=== PATIENT | female | born 1995 | race Caucasian/White ===

== ENCOUNTER → 2016-10-29 | Outpatient (CLI) | payer OTHER ==
[2016-02-18 17:35] VITALS: BP 129/87
[2016-10-29 15:09] LABS: ALANINE AMINOTRANSFERASE 32 Units/L (12-78); ALKALINE PHOSPHATASE 163 Units/L (46-116); ASPARTATE AMINO TRANSFERASE 17 Units/L (15-37); BLOOD UREA NITROGEN 6 mg/dL (7-18); CALCIUM 8.9 mg/dL (8.5-10.1); CARBON DIOXIDE 22.9 mmol/L (21-32); CHLORIDE 107 mmol/L (98-107); CREATININE 0.69 mg/dL (0.55-1.02); GLUCOSE 104 mg/dL (65-99); SODIUM 141 mmol/L (136-145); T4 (THYROXINE) 8.9 ug/dL (4.7-13.3); TOTAL PROTEIN 8.5 g/dL (6.4-8.2); TSH (3RD GENERATION) 3.378 uIU/mL (0.358-3.74); eGFR BLACK RACES > 60 (>60); eGFR NON BLACK RACES > 60 (>60)
== END ==
LOC: LAB 14:00
PROVIDERS: ATTEND Internal Medicine Cardiovascular Disease
DX: Z13.220 Encounter for screening for lipoid disorders (principal); R55 Syncope and collapse; R06.09 Other forms of dyspnea
CPT/HCPCS: 36415; 80053; 84436; 84443; 84480

== ENCOUNTER 2016-11-11 11:39 | Inpatient (IN) | payer OTHER ==
[2016-11-11] MEDS ORDERED: HEPARIN SODIUM IN D5W 25,000 UNITS/500 ML BAG IV ONE (12:12)
[2016-11-11] MEDS ORDERED: HEPARIN SODIUM INJ 5000 UNITS ONE (12:12)
[2016-11-11 13:00] VITALS: BMI 37.4
[2016-11-11] MEDS ORDERED: AFLURIA IM ONE (13:00)
[2016-11-11] MEDS ORDERED: ATARAX TAB 25 MG PO PRN (13:25)
[2016-11-11] MEDS ORDERED: LOVENOX INJ 40 MG SYR SC ONE (14:03)
[2016-11-11] MEDS: LANOXIN PO SCH (14:11)
[2016-11-11] MEDS: LOVENOX INJ 40 MG SYR SC SCH (14:12)
[2016-11-11] MEDS: COREG TAB 12.5 MG PO SCH ×2 (14:13→21:05)
[2016-11-11] MEDS: LASIX PO SCH ×2 (14:13→21:05)
[2016-11-11] MEDS: ALDACTONE TAB 25 MG PO SCH ×2 (14:13→21:05)
[2016-11-11] MEDS: NEURONTIN CAP 100 MG PO SCH ×2 (14:13→21:05)
[2016-11-11] MEDS ORDERED: NORCO 7.5/325 MG TAB PO PRN (14:14)
[2016-11-11] MEDS: WELLBUTRIN XL 150 MG (DAILY) PO SCH (14:19)
[2016-11-11] MEDS: PROTONIX INJ 40 MG VIAL IVP SCH (14:23)
[2016-11-11 14:38] LABS: BASOPHILS # (AUTO) 0.1 X10^3/uL (0.0-0.1); BASOPHILS % (AUTO) 0.5 % (0.2-1.0); EOSINOPHILS # (AUTO) 0.2 x10^3/uL (0.0-0.2); EOSINOPHILS % (AUTO) 1.7 % (0.9-2.9); HEMATOCRIT 43.7 % (36.0-47.0); HEMOGLOBIN 14.5 g/dL (12.0-16.0); LYMPHOCYTES % (AUTO) 28.7 % (21.0-51.0); MEAN CORPUSCULAR HEMOGLOBIN 27.2 pg (27.0-34.0); MEAN CORPUSCULAR HGB CONC 33.1 g/dL (33.0-35.0); MONOCYTES # (AUTO) 0.6 x10^3/uL (0.3-0.8); NEUTROPHILS # (AUTO) 6.7 x10^3/uL (2.2-4.8); NEUTROPHILS % (AUTO) 63.1 % (42.0-75.0); PLATELET COUNT 228 X10^3/uL (150.0-450.0); RED BLOOD COUNT 5.33 X10^6/uL (3.5-5.4); RED CELL DISTRIBUTION WIDTH 14.7 % (11.6-16.5); WHITE BLOOD COUNT 10.6 X10^3/uL (3.6-10.0)
--- NOTE | 2016-11-11 14:39 | RAD ---
HISTORY: Chest pain Study: Portable chest Comparison: July 2011 Findings: The trachea is midline. The cardiac silhouette is unremarkable. The lungs are clear without focal infiltrate or effusion. The bony thorax is unremarkable. IMPRESSION: 1. No acute cardiopulmonary disease. Reported By:
[2016-11-11 14:45] LABS: ALANINE AMINOTRANSFERASE 33 Units/L (12-78); ALBUMIN 3.8 g/dL (3.4-5.0); ALKALINE PHOSPHATASE 146 Units/L (46-116); ASPARTATE AMINO TRANSFERASE 25 Units/L (15-37); BLOOD UREA NITROGEN 7 mg/dL (7-18); CALCIUM 8.8 mg/dL (8.5-10.1); CHLORIDE 107 mmol/L (98-107); DIGOXIN < 0.30 ng/mL (0.9-2); GLUCOSE 97 mg/dL (65-99); MAGNESIUM 1.7 mg/dL (1.7-2.9); SODIUM 142 mmol/L (136-145); TOTAL PROTEIN 8.1 g/dL (6.4-8.2); eGFR BLACK RACES > 60 (>60); eGFR NON BLACK RACES > 60 (>60)
[2016-11-11 14:51] LABS: CKMB % 1.6 % (<4); CREATINE KINASE 62 Units/L (26-192); CREATINE KINASE MB < 1.0 ng/mL (0-4.0); TROPONIN I < 0.02 ng/mL (0-1.5)
[2016-11-11 14:56] LABS: D DIMER < 100 ng/mL (0-400)
[2016-11-11] MEDS ORDERED: PHARMACY CONSULT - DOSE _____ XX SCH (15:00)
--- NOTE | 2016-11-11 15:40 | DR.H&P ---
H&P - History & Physical for Day of: H&P Date: 11/11/16 - Chief Complaint Chief Complaint: CP, SOB - Allergies Allergies/Adverse Reactions: Allergies Allergy/AdvReac Type Severity Reaction Status Date / Time Iodine Allergy Unknown Verified 05/17/15 19:37 Nitrofurantoin Allergy Unknown Verified 05/17/15 19:37 [From Macrobid] Shellfish Allergy Allergy Verified 05/17/15 19:37 - History of Present Illness History of Present Illness: PT WAS A DIRECT ADMIT TO [facility] AFTER HAVING CP AND SOB DURING [place] STRESS TEST PER DR BILLINGS. 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 PT ALSO HAS INDUCED CARDIOMYOPATHY WITH LAST KNOWN EF20%. PT HAS HTN AND SMOKES DAILY. PLAN TO ADMIT TO ICU, CT CHEST WITH IV CONTRAST WITH PROPHYLAXIS TREATMENT FOR IODINE ALLERGY. PLAN TO OBTAIN SERIAL EKG'S, CARDIAC ENZYMES, O2, CONTINUE HOME MEDS. OBTAIN STRESS TEST RESULTS FROM DR BILLINGS - Past Medical History Past Medical History: CHF, Hypertension - Past Surgical History Surgical History: - Family History Family Medical History: Diabetes Mellitus, Cancer, [place], Sudden Cardiac , Hypertension - Social History Does patient currently use any type of tobacco product: Yes Have you used tobacco products in the last 12 months: Yes Type of Tobacco Use: Cigarettes How many years tobacco product used: 8 Does any household member use tobacco: Yes Alcohol Use: None Drug Use: None - Medications Home Medications: Amoxicillin & Pot Clavulanate [Amoxicillin/Clavulanate P 875-125 mg] 1 tab PO Q12H 11/11/16 [History Confirmed 11/11/16] Bupropion HCl [Bupropion HCl Xl] 150 mg PO DAILY 11/11/16 [History Confirmed 10/25] Carvedilol [COREG TAB 12.5 MG *] 1 tab PO BID 11/11/16 [History Confirmed ] Furosemide [Lasix] 20 mg PO BID 11/11/16 [History Confirmed 11/11/16] Gabapentin 100 mg PO BID 11/11/16 [History Confirmed 11/11/16] Quetiapine Fumarate 1 tab PO HS 11/11/16 [History Confirmed 11/11/16] Spironolactone 1 tab PO BID 11/11/16 [History Confirmed 11/11/16] - Physical Exam Vital Signs: Temperature 98.1 F Pulse Rate [Apical] 81 Pulse Rate 86 Respiratory Rate 24 Blood Pressure [Right Arm] 106/50 Blood Pressure [Left Arm] 109/68 Blood Pressure 129/87 O2 Sat by Pulse Oximetry 95
[2016-11-11 17:00] LABS: BILIRUBIN,URINE NEGATIVE (NEGATIVE); BLOOD/HEMOGLOBIN,URINE 2+ (NEGATIVE); GLUCOSE, URINE NEGATIVE (NEGATIVE); KETONES,URINE NEGATIVE (NEGATIVE); LEUKOCYTE ESTERASE ,URINE 3+ (NEGATIVE); NITRITES,URINE NEGATIVE (NEGATIVE); PROTEIN,URINE NEGATIVE (NEGATIVE); UROBILINOGEN,URINE NORMAL (NORMAL)
[2016-11-11 17:04] LABS: APPEARANCE,URINE HAZY (CLEAR); BACTERIA,URINE TRACE /HPF (NEGATIVE); COLOR,URINE YELLOW (YELLOW); RBC,URINE 0-2 /HPF (NEGATIVE); SQUAMOUS EPITHELIAL CELL,UR RARE /HPF (NEGATIVE)
[2016-11-11] MEDS ORDERED: PREDNISONE TAB 20 MG PO ONE ×2 (18:00→20:00)
[2016-11-11] MEDS ORDERED: NICODERM PATCH 21 MG/24 HR TD ONE (18:01)
[2016-11-11] MEDS: NICODERM PATCH 21 MG/24 HR TD SCH (18:04)
[2016-11-11] MEDS ORDERED: TORADOL 30 MG VIAL IVP STA (19:10)
[2016-11-11 20:21] LABS: CREATINE KINASE 51 Units/L (26-192); CREATINE KINASE MB < 1.0 ng/mL (0-4.0); TROPONIN I < 0.02 ng/mL (0-1.5)
[2016-11-11] MEDS: SEROQUEL TAB 25 MG PO SCH ×2 (21:06→23:22)
[2016-11-11] MEDS: NORCO 5/325 MG TAB PO PRN (21:55)
[2016-11-11] MEDS: AMBIEN PO PRN (23:23)
[2016-11-12] MEDS: ZOFRAN INJ 4 MG VIAL IVP PRN ×2 (00:14→16:29)
[2016-11-12] MEDS ORDERED: PREDNISONE TAB 20 MG PO ONE ×2 (02:00→08:00)
[2016-11-12 03:24] LABS: CHOL/HDL RATIO 5.9 (0.0-5.0)
[2016-11-12 03:36] LABS: CKMB % 1.5 % (<4); CREATINE KINASE 65 Units/L (26-192); CREATINE KINASE MB < 1.0 ng/mL (0-4.0); TROPONIN I < 0.02 ng/mL (0-1.5)
[2016-11-12] MEDS ORDERED: BENADRYL INJ 50 MG VIAL IVP ONE (06:00)
[2016-11-12] MEDS ORDERED: BENADRYL CAP 50 MG PO ONE (08:00)
[2016-11-12] MEDS: ALDACTONE TAB 25 MG PO SCH ×2 (08:02→22:03)
[2016-11-12] MEDS: NEURONTIN CAP 100 MG PO SCH ×2 (08:02→22:03)
[2016-11-12] MEDS: WELLBUTRIN XL 150 MG (DAILY) PO SCH (08:02)
[2016-11-12] MEDS: PROTONIX INJ 40 MG VIAL IVP SCH (08:02)
[2016-11-12] MEDS: LANOXIN PO SCH (08:02)
[2016-11-12] MEDS: LASIX PO SCH ×2 (08:02→22:03)
[2016-11-12] MEDS: NICODERM PATCH 21 MG/24 HR TD SCH (08:03)
[2016-11-12] MEDS: LOVENOX INJ 40 MG SYR SC SCH (08:10)
[2016-11-12] MEDS: COREG TAB 12.5 MG PO SCH ×2 (11:49→22:02)
[2016-11-12] MEDS: NORCO 5/325 MG TAB PO PRN ×2 (16:19→22:04)
[2016-11-12] MEDS ORDERED: LEVSIN/MAALOX/LIDOC VISC PO PRN (19:21)
--- NOTE | 2016-11-12 19:26 | PCM.PROG ---
Progress Note - Progress Note for Day of Date: 11/12/16 - Subjective Subjective: continued co chest pain, pt cardiac enzymes were stable, pt has been premedicated for ct chest due to iodine allergy. Dr abreu radiologist reccomended vq scan. ct canceled, pt has vq scan order for AM. pt currently on protonix will add gi cocktail, continue bp control. monitor i & os, o2 replacement, discussed abnormal stress test findings and need for future cath. - Past Medical Family Social History Past Med/Fam/Surg Hx: No changes since H&P Allergies: Allergies Iodine Allergy (Unknown, Verified 05/17/15 19:37) Nitrofurantoin [From Macrobid] Allergy (Unknown, Verified 05/17/15 19:37) Shellfish Allergy Allergy (Verified 05/17/15 19:37) - Review of Systems ROS: No change since H&P - Vital Signs and I&O's Vital Signs: Temperature 98.9 F Pulse Rate [Apical] 101 Pulse Rate 86 Respiratory Rate 24 Blood Pressure [Right Arm] 87/48 Blood Pressure [Left Arm] 109/68 Blood Pressure 129/87 O2 Sat by Pulse Oximetry 94 Intake and Output: Intake & Output 11/10/16 11/11/16 11/12/16 11/13/16 11:59 11:59 11:59 11:59 Intake Total 865 500 Output Total 1950 400 Balance -1085 100 - Physical Exam Oriented: Normal Eyes: Normal Ear: Normal Nose: Normal Throat: Dry Respiratory: Wheezes (mild lower ep wheezes) Cardiovascular: Murmur : Normal Auscultation: Bowel Sounds: Normal Palpation: Normal Tenderness: Epigastric (mild) Skin: Normal Musculoskeletal: Back:Lumbar Psychiatric: Depression Speech Pattern: Clear, Appropriate - Laboratory and Diagnostics Result Diagrams: 11/11/16 12:10 11/11/16 12:10 Labs: Laboratory WBC 10.6 X10^3/uL (3.6-10.0) H 11/11/16 12:10 RBC 5.33 X10^6/uL (3.5-5.4) 11/11/16 12:10 Hgb 14.5 g/dL (12.0-16.0) 11/11/16 12:10 Hct 43.7 % (36.0-47.0) 11/11/16 12:10 MCV 82.0 fL (80.0-100.0) 11/11/16 12:10 MCH 27.2 pg (27.0-34.0) 11/11/16 12:10 MCHC 33.1 g/dL (33.0-35.0) 11/11/16 12:10 RDW 14.7 % (11.6-16.5) 11/11/16 12:10 Plt Count 228 X10^3/uL (150.0-450.0) 11/11/16 12:10 MPV 9.0 fL (7.4-11.0) 11/11/16 12:10 Neut % 63.1 % (42.0-75.0) 11/11/16 12:10 Lymph % 28.7 % (21.0-51.0) 11/11/16 12:10 [place] % 6.0 % (0.0-13.0) 11/11/16 12:10 Eos % 1.7 % (0.9-2.9) 11/11/16 12:10 Baso % 0.5 % (0.2-1.0) 11/11/16 12:10 Neut # 6.7 x10^3/uL (2.2-4.8) H 11/11/16 12:10 Lymph # 3.0 X10^3/uL (1.3-2.9) H 11/11/16 12:10 [place] # 0.6 x10^3/uL (0.3-0.8) 11/11/16 12:10 Eos # 0.2 x10^3/uL (0.0-0.2) 11/11/16 12:10 Baso # 0.1 X10^3/uL (0.0-0.1) 11/11/16 12:10 Absolute Nucleated RBC 0.2 /100WBC 11/11/16 12:10 INR Target Range - 11/11/16 12:10 INR 1.15 (0.8-1.3) 11/11/16 12:10 PTT 32.9 SECONDS (22.9-36.5) 11/11/16 12:10 PTT Comment - 11/11/16 12:10 D-Dimer < 100 ng/mL (0-400) 11/11/16 12:10 Sodium 142 mmol/L (136-145) 11/11/16 12:10 Corrected Sodium TNP 11/11/16 12:10 Potassium 3.6 mmol/L (3.5-5.1) 11/11/16 12:10 Chloride 107 mmol/L (98-107) 11/11/16 12:10 Carbon Dioxide 21.0 mmol/L (21-32) 11/11/16 12:10 BUN 7 mg/dL (7-18) 11/11/16 12:10 Creatinine 0.70 mg/dL (0.55-1.02) 11/11/16 12:10 Est GFR (MDRD) Af Amer > 60 (>60) 11/11/16 12:10 Est GFR (MDRD) Non-Af > 60 (>60) 11/11/16 12:10 Glucose 97 mg/dL (65-99) 11/11/16 12:10 Calcium 8.8 mg/dL (8.5-10.1) 11/11/16 12:10 Corrected Calcium TNP 11/11/16 12:10 Magnesium 1.7 mg/dL (1.7-2.9) 11/11/16 12:10 Total Bilirubin 0.40 mg/dL (0.2-1.0) 11/11/16 12:10 AST 25 Units/L (15-37) 11/11/16 12:10 ALT 33 Units/L (12-78) 11/11/16 12:10 Alkaline Phosphatase 146 Units/L (46-116) H 11/11/16 12:10 Creatine Kinase 65 Units/L (26-192) 11/12/16 02:55 CK-MB (CK-2) < 1.0 ng/mL (0-4.0) 11/12/16 02:55 CK/CKMB % Calc 1.5 % (<4) 11/12/16 02:55 Troponin I < 0.02 ng/mL (0-1.5) 11/12/16 02:55 Total Protein 8.1 g/dL (6.4-8.2) 11/11/16 12:10 Albumin 3.8 g/dL (3.4-5.0) 11/11/16 12:10 Globulin 4.3 g/dL (2.5-4.5) 11/11/16 12:10 Albumin/Globulin Ratio 0.9 Ratio (1.1-2.1) L 11/11/16 12:10 Triglycerides 48 mg/dL (0-150) 11/12/16 02:55 Cholesterol 130 mg/dL (0-200) 11/12/16 02:55 LDL Cholesterol, Calc 98 mg/dL (0-100) 11/12/16 02:55 HDL Cholesterol 22 mg/dL (40-60) L 11/12/16 02:55 Cholesterol/HDL Ratio 5.9 (0.0-5.0) H 11/12/16 02:55 Specimen Type Clean catch urine 11/11/16 16:46 Urine Color Yellow (YELLOW) 11/11/16 16:46 Urine Appearance Hazy (CLEAR) 11/11/16 16:46 Urine pH 5.0 (5.0 - 8.0) 11/11/16 16:46 Ur Specific [place] 1.015 (1.000-1.030) 11/11/16 16:46 Urine Protein Negative (NEGATIVE) 11/11/16 16:46 Urine Glucose (UA) Negative (NEGATIVE) 11/11/16 16:46 Urine Ketones Negative (NEGATIVE) 11/11/16 16:46 Urine Occult Blood 2+ (NEGATIVE) 11/11/16 16:46 Urine Nitrite Negative (NEGATIVE) 11/11/16 16:46 Urine Bilirubin Negative (NEGATIVE) 11/11/16 16:46 Urine Urobilinogen Normal (NORMAL) 11/11/16 16:46 Ur Leukocyte Esterase 3+ (NEGATIVE) 11/11/16 16:46 Urine RBC 0-2 /HPF (NEGATIVE) 11/11/16 16:46 Urine WBC 3-5 /HPF (NEGATIVE) 11/11/16 16:46 Ur Squamous Epith Cells Rare /HPF (NEGATIVE) 11/11/16 16:46 Urine Bacteria Trace /HPF (NEGATIVE) 11/11/16 16:46 Ur Culture Indicated? No/not indicated 11/11/16 16:46 Digoxin < 0.30 ng/mL (0.9-2) L 11/11/16 12:10 - Plan (1) Chest pain Status: Acute Qualifiers: Chest pain type: C Ischemic chest pain type: I Plan: continue cardiac monitoring, vq scan pending. strict i & os. bp and lipid control (2) Hypertension Status: Acute Qualifiers: Hypertension type: H Plan: continue home meds (3) cardiomyopathy Status: Acute Plan: chf management (4) CHF (congestive heart failure) Status: Acute Qualifiers: Congestive heart failure type: C Congestive heart failure chronicity: C Plan: continue bb, lasix, aldactone, digoxin. daily cxr, bp and lipid control, o2 (5) CAD (coronary artery disease) Status: Acute Qualifiers: Coronary Disease-Associated Artery/Lesion type: C [place] vs. transplanted heart: N Associated angina: A Plan: abnormal stress test, discussed need for future heart cath. bp and lipid control, asa therapy
[2016-11-12] MEDS: AMBIEN PO PRN (22:03)
[2016-11-12] MEDS: SEROQUEL TAB 25 MG PO SCH (22:04)
[2016-11-13 06:34] LABS: BASOPHILS # (AUTO) 0.1 X10^3/uL (0.0-0.1); BASOPHILS % (AUTO) 0.4 % (0.2-1.0); EOSINOPHILS % (AUTO) 0.2 % (0.9-2.9); HEMATOCRIT 41.7 % (36.0-47.0); HEMOGLOBIN 13.9 g/dL (12.0-16.0); LYMPHOCYTES # (AUTO) 2.9 X10^3/uL (1.3-2.9); LYMPHOCYTES % (AUTO) 17.5 % (21.0-51.0); MEAN CORPUSCULAR HEMOGLOBIN 27.2 pg (27.0-34.0); MEAN CORPUSCULAR HGB CONC 33.3 g/dL (33.0-35.0); MEAN CORPUSCULAR VOLUME 81.6 fL (80.0-100.0); MEAN PLATELET VOLUME 8.8 fL (7.4-11.0); MONOCYTES # (AUTO) 0.9 x10^3/uL (0.3-0.8); MONOCYTES % (AUTO) 5.4 % (0.0-13.0); NEUTROPHILS # (AUTO) 12.6 x10^3/uL (2.2-4.8); NEUTROPHILS % (AUTO) 76.5 % (42.0-75.0); PLATELET COUNT 242 X10^3/uL (150.0-450.0); RED CELL DISTRIBUTION WIDTH 14.7 % (11.6-16.5); WHITE BLOOD COUNT 16.4 X10^3/uL (3.6-10.0)
[2016-11-13 06:43] LABS: ALANINE AMINOTRANSFERASE 31 Units/L (12-78); ALBUMIN 3.5 g/dL (3.4-5.0); ALKALINE PHOSPHATASE 127 Units/L (46-116); ASPARTATE AMINO TRANSFERASE 15 Units/L (15-37); BLOOD UREA NITROGEN 9 mg/dL (7-18); CALCIUM 8.5 mg/dL (8.5-10.1); CARBON DIOXIDE 23.1 mmol/L (21-32); CHLORIDE 109 mmol/L (98-107); CREATININE 0.58 mg/dL (0.55-1.02); GLUCOSE 108 mg/dL (65-99); MAGNESIUM 1.7 mg/dL (1.7-2.9); SODIUM 144 mmol/L (136-145); TOTAL PROTEIN 7.6 g/dL (6.4-8.2); eGFR BLACK RACES > 60 (>60); eGFR NON BLACK RACES > 60 (>60)
[2016-11-13] MEDS: LOVENOX INJ 40 MG SYR SC SCH (08:57)
[2016-11-13] MEDS: ALDACTONE TAB 25 MG PO SCH (08:58)
[2016-11-13] MEDS: NEURONTIN CAP 100 MG PO SCH (08:58)
[2016-11-13] MEDS: NICODERM PATCH 21 MG/24 HR TD SCH (08:58)
[2016-11-13] MEDS: LANOXIN PO SCH (08:58)
[2016-11-13] MEDS: WELLBUTRIN XL 150 MG (DAILY) PO SCH (08:58)
[2016-11-13] MEDS: PROTONIX INJ 40 MG VIAL IVP SCH (08:59)
[2016-11-13] MEDS: LASIX PO SCH (08:59)
[2016-11-13] MEDS: COREG TAB 12.5 MG PO SCH (08:59)
--- NOTE | 2016-11-13 10:25 | NM ---
HISTORY: Chest pain, shortness of breath Study: Ventilation-perfusion lung scan Comparison: None Technique: Ventilation scan was carried out using 25.6 millicuries technetium 99 M DTPA aerosol. Per fusion scan was carried out using intravenous injection of 5.2 millicuries technetium 99 MAA. Findings: Ventilation scan demonstrated symmetric ventilation without evidence for ventilation defects. Perfus ion scan demonstrated symmetric profusion without evidence for subsegmental, segmental, or lobar per fusion defects. The probability of acute pulmonary thrombo embolic disease is low IMPRESSION: Low probability acute pulmonary thromboembolic disease Reported By:
[2016-11-13 13:48] LABS: CKMB % 3.9 % (<4); CREATINE KINASE 26 Units/L (26-192); CREATINE KINASE MB < 1.0 ng/mL (0-4.0); TROPONIN I < 0.02 ng/mL (0-1.5)
[2016-11-13] MEDS: NORCO 5/325 MG TAB PO PRN (15:41)
[2016-11-13 15:46] VITALS: BP 135/64
== END 2016-11-13 15:45 | disposition short-term general hospital (02) | DRG 313 ==
LOC: ICU 11:39
PROVIDERS: ADMIT Internal Medicine; ATTEND Internal Medicine
PROC: 3E0234Z Introduction of Serum, Toxoid and Vaccine into Muscle, Percutaneous Approach (ICD-10-PCS; principal; 2016-11-11)
DX: R07.89 Other chest pain (principal); R06.09 Other forms of dyspnea; I10 Essential (primary) hypertension; I42.8 Other cardiomyopathies; I50.9 Heart failure, unspecified; I25.10 Atherosclerotic heart disease of native coronary artery without angina pectoris; Z23 Encounter for immunization
CPT/HCPCS: 36415; 71010; 78582; 80053; 80061; 80162; 81001; 82550; 82553; 83735; 84484; 85025; 85378; 85610; 85730; 90686; 93005; 93010; A4216; A4222; C9113; S0106; J1644; J1650; J1885; J2405; J7506

== ENCOUNTER → 2016-11-11 | Outpatient (CLI) | payer OTHER ==
[2016-02-18 17:35] VITALS: BP 129/87
[~2016-11-11] MED LIST: LEXISCAN IV ONE
== END ==
LOC: RAD 08:23
PROVIDERS: ATTEND Internal Medicine Cardiovascular Disease
DX: R06.09 Other forms of dyspnea (principal); I20.8 Other forms of angina pectoris
CPT/HCPCS: 78452; 93017; A4222; A9502; J2785

== ENCOUNTER 2016-11-15 00:28 | Emergency (ER) | payer OTHER, MEDICAID ==
[2016-11-15 00:39] VITALS: BMI 38.6
--- NOTE | 2016-11-15 00:52 | DR.CP ---
HPI - Time Seen Time seen: 12:45 - PCP Primary Care Physician: BETZAIDA BURDICK - HPI Comment HPI Comment: Patient was transferred to survey instrument operator in [place] for a catherization left AMA.on yesterday. She is here because left sided numbness that has been ongoing under the care of her pcp and referring physician to the survey instrument operator. Patient has been followed by rn pediatric in [place] and she is transitioned to adult medicine.. There was a conflict between the PA today and patient and she left prior to getting cath. She has had ongoing chest pain. - Complaint Chief Complaint:: LEFT SIDED NUMBNESS X 3 DAYS Self Treatment fo Chief Complaint: NONE - Source History Provided: Patient - Mode of Arrival Mode of Arrival: Stretcher - Timing Onset of Chief Complaint: 11/12/16 PMH - PMH Past Medical History: Yes Past Medical History: CHF, Hypertension Past Surgical History: Yes Surgical History: - Family History History of Family Medical Conditions: Yes Family Medical History: Diabetes Mellitus, Cancer, [place], Sudden Cardiac , Hypertension - Social History Does patient currently use any type of tobacco product: Yes Have you used tobacco products in the last 12 months: Yes Type of Tobacco Use: Cigarettes Alcohol Use: None Do you use any recreational Drugs:: No Lives With: Significant Other Lives Where: Home - infectious screening In the last 2 months have you had wt loss of >10#?: NO Have you had fever, night sweats or hemotysis?: No Have you traveled outside the country in the last 6 months?: No Isolation: Standard ROS - Review of Systems Eyes: No Symptoms Reported ENTM: No Symptoms Reported Respiratoy: No Symptoms Reported Cardiovascular: No Symptoms Reported Gastrointestinal/Abdominal: No Symptoms Reported Genitourinary: No Symptoms Reported Neurological: No Symptoms Reported Musculoskeletal: See HPI Integumentary: No Symptoms Reported Hematologic/Lymphatic: No Symptoms Reported Endocrine: No Symptoms Reported Psychiatric: No Symptoms Reported All Other Systems: Reviewed and Negative PE - Vitals Vitals: Temperature 97.7 F Pulse Rate [Right Brachial] 83 Pulse Rate 98 Respiratory Rate 16 Blood Pressure [Right Arm] 124/60 Blood Pressure [Left Arm] 109/68 Blood Pressure 142/101 O2 Sat by Pulse Oximetry 98 - General Limitations: No Limitations General Appearance: Alert, In No Apparent Distress - Head Head Exam: Normal Inspection, Atraumatic - Eyes Eye exam: Normal Appearance, PERRL, EOMI - ENT ENT Exam: Normal Exam - Chest Chest Inspection: Normal Inspection - Respiratory Respiratory Exam: Normal Lung Sounds Bilat Respiratory Exam: Bilateral Clear to Auscultation - Cardiovascular Cardiovascular Exam: Regular Rate, Normal Rhythm Pulse: Normal, Radial Edema: Normal - Abdominal Exam Abdominal Exam: Normal Inspection Abdominal Tenderness: negative: RUQ, RLQ, LUQ, LLQ, Epigastrium, Suprapubic, Diffuse, Mild, Moderate, Severe, Other - Extremities Extremities Exam: Normal Inspection, Full ROM - Back Back Exam: Normal Inspection, Full ROM - Neurologic Neurological Exam: Alert, Oriented X3, CN II-XII Intact - Psychiatric Psychiatric Exam: Normal Affect - Skin Skin Exam: Warm, Dry, Intact Course - Reevaluation 1st: Unchanged ROR - Labs Reviewed Laboratory Results Reviewed?: Yes (low potassium) Result Diagrams: 11/15/16 01:15 11/15/16 01:15 Laboratory: WBC 17.3 X10^3/uL (3.6-10.0) H 11/15/16 01:15 RBC 5.41 X10^6/uL (3.5-5.4) H 11/15/16 01:15 Hgb 14.6 g/dL (12.0-16.0) 11/15/16 01:15 Hct 44.4 % (36.0-47.0) 11/15/16 01:15 MCV 82.0 fL (80.0-100.0) 11/15/16 01:15 MCH 26.9 pg (27.0-34.0) L 11/15/16 01:15 MCHC 32.8 g/dL (33.0-35.0) L 11/15/16 01:15 RDW 15.0 % (11.6-16.5) 11/15/16 01:15 Plt Count 248 X10^3/uL (150.0-450.0) 11/15/16 01:15 MPV 8.4 fL (7.4-11.0) 11/15/16 01:15 Neut % 70.3 % (42.0-75.0) 11/15/16 01:15 Lymph % 22.3 % (21.0-51.0) 11/15/16 01:15 [place] % 6.4 % (0.0-13.0) 11/15/16 01:15 Eos % 0.7 % (0.9-2.9) L 11/15/16 01:15 Baso % 0.3 % (0.2-1.0) 11/15/16 01:15 Neut # 12.2 x10^3/uL (2.2-4.8) H 11/15/16 01:15 Lymph # 3.9 X10^3/uL (1.3-2.9) H 11/15/16 01:15 [place] # 1.1 x10^3/uL (0.3-0.8) H 11/15/16 01:15 Eos # 0.1 x10^3/uL (0.0-0.2) 11/15/16 01:15 Baso # 0.1 X10^3/uL (0.0-0.1) 11/15/16 01:15 Absolute Nucleated RBC 0.0 /100WBC 11/15/16 01:15 PTT 29.2 SECONDS (22.9-36.5) 11/15/16 01:15 PTT Comment - 11/15/16 01:15 Sodium 142 mmol/L (136-145) 11/15/16 01:15 Corrected Sodium 143 mmol/L (136-145) 11/15/16 01:15 Potassium 3.4 mmol/L (3.5-5.1) L 11/15/16 01:15 Chloride 106 mmol/L (98-107) 11/15/16 01:15 Carbon Dioxide 25.7 mmol/L (21-32) 11/15/16 01:15 BUN 12 mg/dL (7-18) 11/15/16 01:15 Creatinine 0.71 mg/dL (0.55-1.02) 11/15/16 01:15 Est GFR (MDRD) Af Amer > 60 (>60) 11/15/16 01:15 Est GFR (MDRD) Non-Af > 60 (>60) 11/15/16 01:15 Glucose 127 mg/dL (65-99) H 11/15/16 01:15 Calcium 8.9 mg/dL (8.5-10.1) 11/15/16 01:15 Corrected Calcium TNP 11/15/16 01:15 Phosphorus 3.7 mg/dL (2.6-4.7) 11/15/16 01:15 Magnesium 2.0 mg/dL (1.7-2.9) 11/15/16 01:15 Total Bilirubin 0.30 mg/dL (0.2-1.0) 11/15/16 01:15 AST 13 Units/L (15-37) L 11/15/16 01:15 ALT 29 Units/L (12-78) 11/15/16 01:15 Alkaline Phosphatase 131 Units/L (46-116) H 11/15/16 01:15 Creatine Kinase 17 Units/L (26-192) L 11/15/16 01:15 CK-MB (CK-2) < 1.0 ng/mL (0-4.0) 11/15/16 01:15 CK/CKMB % Calc 5.9 % (<4) 11/15/16 01:15 Troponin I < 0.02 ng/mL (0-1.5) 11/15/16 01:15 Total Protein 7.9 g/dL (6.4-8.2) 11/15/16 01:15 Albumin 3.8 g/dL (3.4-5.0) 11/15/16 01:15 Globulin 4.1 g/dL (2.5-4.5) 11/15/16 01:15 Albumin/Globulin Ratio 0.9 Ratio (1.1-2.1) L 11/15/16 01:15 - XRAY XRAY Interpreted by: Radiologist (Chest: no cardiopulmonary disease) - Diagnosis Discharge Problem: Chest pain Qualifiers: Chest pain type: unspecified Qualified Code(s): R07.9 - Chest pain, unspecified - Discharge Plan Condition: Stable - Follow ups/Referrals Follow ups/Referrals: DC CHAUHAN [Primary Care Provider] - 3 days - Instructions
--- NOTE | 2016-11-15 01:15 | RAD ---
EXAM: Chest X-ray INDICATION: Chest pain COMPARISION: Prior exam from November 11, 2016 TECHNIQUE: AP, single view FINDINGS: The lungs are clear in the lung volumes are within normal limits. No pleural effusion or pneumothora x. The cardiac silhouette and mediastinum are normal. The regional skeleton is intact. IMPRESSION: Normal Chest X-Ray Reported By:
[2016-11-15 01:40] LABS: BASOPHILS # (AUTO) 0.1 X10^3/uL (0.0-0.1); BASOPHILS % (AUTO) 0.3 % (0.2-1.0); EOSINOPHILS # (AUTO) 0.1 x10^3/uL (0.0-0.2); EOSINOPHILS % (AUTO) 0.7 % (0.9-2.9); HEMATOCRIT 44.4 % (36.0-47.0); HEMOGLOBIN 14.6 g/dL (12.0-16.0); LYMPHOCYTES # (AUTO) 3.9 X10^3/uL (1.3-2.9); LYMPHOCYTES % (AUTO) 22.3 % (21.0-51.0); MEAN CORPUSCULAR HEMOGLOBIN 26.9 pg (27.0-34.0); MEAN CORPUSCULAR HGB CONC 32.8 g/dL (33.0-35.0); MEAN PLATELET VOLUME 8.4 fL (7.4-11.0); MONOCYTES # (AUTO) 1.1 x10^3/uL (0.3-0.8); MONOCYTES % (AUTO) 6.4 % (0.0-13.0); NEUTROPHILS # (AUTO) 12.2 x10^3/uL (2.2-4.8); NEUTROPHILS % (AUTO) 70.3 % (42.0-75.0); PLATELET COUNT 248 X10^3/uL (150.0-450.0); RED BLOOD COUNT 5.41 X10^6/uL (3.5-5.4); WHITE BLOOD COUNT 17.3 X10^3/uL (3.6-10.0)
[2016-11-15 01:53] LABS: PHOSPHORUS 3.7 mg/dL (2.6-4.7)
[2016-11-15 02:01] LABS: BLOOD UREA NITROGEN 12 mg/dL (7-18); CALCIUM 8.9 mg/dL (8.5-10.1); CARBON DIOXIDE 25.7 mmol/L (21-32); CHLORIDE 106 mmol/L (98-107); COR NA(FOR HYPERGLY) 143 mmol/L (136-145); CREATININE 0.71 mg/dL (0.55-1.02); GLUCOSE 127 mg/dL (65-99); SODIUM 142 mmol/L (136-145); TROPONIN I < 0.02 ng/mL (0-1.5); eGFR BLACK RACES > 60 (>60); eGFR NON BLACK RACES > 60 (>60)
[2016-11-15 02:05] LABS: ALANINE AMINOTRANSFERASE 29 Units/L (12-78); ALBUMIN 3.8 g/dL (3.4-5.0); ALKALINE PHOSPHATASE 131 Units/L (46-116); ASPARTATE AMINO TRANSFERASE 13 Units/L (15-37); CKMB % 5.9 % (<4); CREATINE KINASE 17 Units/L (26-192); CREATINE KINASE MB < 1.0 ng/mL (0-4.0); TOTAL PROTEIN 7.9 g/dL (6.4-8.2)
[2016-11-15] MEDS ORDERED: K-DUR TAB 20 MEQ PO ONE ×2 (02:24→02:26)
[2016-11-15 03:24] VITALS: BP 135/69
== END 2016-11-15 03:00 | disposition home or self-care (01) ==
LOC: ER 00:28
DX: R07.89 Other chest pain (principal); I10 Essential (primary) hypertension
CPT/HCPCS: 36415; 71010; 80053; 82550; 82553; 83735; 84100; 84484; 85025; 85730; 93005; 93010; 99283

== ENCOUNTER 2017-03-21 14:04 | Emergency (ER) | payer OTHER, MEDICAID ==
[2017-03-21 14:16] VITALS: BP 127/76; BMI 38.5
[2017-03-21 15:12] LABS: BASOPHILS # (AUTO) 0.2 X10^3/uL (0.0-0.1); BASOPHILS % (AUTO) 1.6 % (0.2-1.0); EOSINOPHILS # (AUTO) 0.1 x10^3/uL (0.0-0.2); EOSINOPHILS % (AUTO) 1.3 % (0.9-2.9); HEMATOCRIT 41.8 % (36.0-47.0); HEMOGLOBIN 14.1 g/dL (12.0-16.0); LYMPHOCYTES # (AUTO) 2.3 X10^3/uL (1.3-2.9); LYMPHOCYTES % (AUTO) 21.2 % (21.0-51.0); MEAN CORPUSCULAR HEMOGLOBIN 27.3 pg (27.0-34.0); MEAN CORPUSCULAR HGB CONC 33.8 g/dL (33.0-35.0); MEAN CORPUSCULAR VOLUME 80.6 fL (80.0-100.0); MEAN PLATELET VOLUME 8.4 fL (7.4-11.0); MONOCYTES # (AUTO) 0.4 x10^3/uL (0.3-0.8); MONOCYTES % (AUTO) 3.9 % (0.0-13.0); NEUTROPHILS # (AUTO) 7.8 x10^3/uL (2.2-4.8); PLATELET COUNT 222 X10^3/uL (150.0-450.0); RED BLOOD COUNT 5.18 X10^6/uL (3.5-5.4); WHITE BLOOD COUNT 10.9 X10^3/uL (3.6-10.0)
--- NOTE | 2017-03-21 15:13 | DR.CP ---
HPI - Time Seen Time seen: 14:35 - PCP Primary Care Physician: GISSEL - HPI Comment HPI Comment: HISTORY BELOW. - Complaint Chief Complaint Doctor Comments: CHEST PAIN, PRESSURE LIKE TIME FEW HOURS LEFT CHEST. HAVE PUSTLAR LESIONS UNDER LEFT BREAST THAT HAS WAS NOTED SEVERAL DAYS AGO. WAS IN LAB TO SCHDULE MAMOGRAPHY WHEN CHEST PAIN STARTED. NO FEVER. HAVE SOB ON EXERSION. DENIES URI SYMTOMS. Chief Complaint:: CAME IN FOR LAB WORK PER ACO[facility] ROSS. MY CHEST STARTED HURTING IN LEFT SHOULDER/CHEST AREA. FEELS LIKE A ELEPHANT SITTING ON TOP OF ME - Reviewed Nurses Notes Review: Yes - Source History Provided: Patient, Friend - Mode of Arrival Mode of Arrival: Ambulatory - Timing Onset of Chief Complaint: 03/21/17 Came on: Gradually - Duration Duration: Constant Duration: Days - Location Location of Chest Pain: Left Chest Pain Radiation Location: None - Context Onset: At rest Cardiac Risk Factors: HTN PE Risk Factors: None History of: None Prehospital Care: None - Quality Quality: Pressure like - Severity Severity: Moderate - Modifying Factors Worsens: Position Impoves: Nothing - Associated Signs and Symptoms Associated Signs and Symptoms: Shortness of Breath (ON EXERTION), Chest Rash ( UNDER LEFT BREAST.) PMH - PMH Past Medical History: Yes Past Medical History: CHF, Hypertension Past Surgical History: Yes Surgical History: - Family History History of Family Medical Conditions: Yes Family Medical History: Diabetes Mellitus, Cancer, [place], Sudden Cardiac , Hypertension - Social History Does patient currently use any type of tobacco product: Yes Have you used tobacco products in the last 12 months: Yes Type of Tobacco Use: Cigarettes How many years tobacco product used: 8 Does any household member use tobacco: Yes Alcohol Use: None Do you use any recreational Drugs:: No Lives With: Family Lives Where: Home - infectious screening In the last 2 months have you had wt loss of >10#?: NO Have you had fever, night sweats or hemotysis?: No Have you traveled outside the country in the last 6 months?: No Isolation: Standard ROS - Review of Systems Constitutional: negative: Chills, Fever, Weakness, Fatigue Eyes: No Symptoms Reported. negative: Eye Pain, Discharge ENTM: No Symptoms Reported. negative: Ear Pain, Ear Discharge, Nose Discharge, Nose Congestion, Throat Pain Respiratoy: Non-Productive Cough, Short of Breath. negative: Productive Cough, Wheezing, Hemoptysis Cardiovascular: Chest Pain (CHEST WALL PAIN). negative: Edema, Palpitations Gastrointestinal/Abdominal: Nausea. negative: Abdominal Pain, Diarrhea, Vomiting Genitourinary: No Symptoms Reported. negative: Dysuria, Frequency, Hematuria Neurological: negative: Headache, Weakness, Dizziness Musculoskeletal: Left, Chest wall Integumentary: Rash (UNDER LT BREAST) Hematologic/Lymphatic: Easy Bruising Endocrine: No Symptoms Reported All Other Systems: Reviewed and Negative PE - Vitals Vitals: Pulse Rate 88 Respiratory Rate 20 Blood Pressure [Right Arm] 135/69 Blood Pressure [Left Arm] 109/68 Blood Pressure 127/76 O2 Sat by Pulse Oximetry 99 - General Limitations: No Limitations General Appearance: Alert - Head Head Exam: Normal Inspection - Eyes Eye exam: Normal Appearance - ENT ENT Exam: Normal External Ear Exam - Chest Chest Inspection: Symmetric Chest Wall Rise - Respiratory Respiratory Exam: Normal Lung Sounds Bilat, Chest Wall Tenderness (UNDER LEDT BREAST.) Respiratory Exam: Bilateral Clear to Auscultation - Cardiovascular Cardiovascular Exam: Regular Rate, Normal Rhythm, Normal Heart Sounds Pulse: Normal, Radial, Femoral Edema: Normal - Abdominal Exam Abdominal Exam: Normal Bowel Sounds, Soft. negative: Tenderness - Extremities Extremities Exam: Normal Inspection - Back Back Exam: Normal Inspection - Neurologic Neurological Exam: Alert, Oriented X3 - Psychiatric Psychiatric Exam: Anxious - Skin Skin Exam: Normal Color MDM - Additional Information Additional Information Obtained From: Family - Differential Diagnosis Differential Diagnosis: Angina, Chest Wall Pain, CHF, Costochondritis, Esophageal Reflux/Spasm, Gastritis, Pneumonia, Pneumothorax Course - Treatment Treatment: SEE ORDERS. - Education/Counseling Education/Counseling: Patient, Education Educated On: Treatment, Diagnosis, Needs for Follow Up ROR - Labs Reviewed Result Diagrams: 03/21/17 15:01 03/21/17 15:01 Laboratory: WBC 10.9 X10^3/uL (3.6-10.0) H 03/21/17 15:01 RBC 5.18 X10^6/uL (3.5-5.4) 03/21/17 15:01 Hgb 14.1 g/dL (12.0-16.0) 03/21/17 15:01 Hct 41.8 % (36.0-47.0) 03/21/17 15:01 MCV 80.6 fL (80.0-100.0) 03/21/17 15:01 MCH 27.3 pg (27.0-34.0) 03/21/17 15: MCHC 33.8 g/dL (33.0-35.0) 03/21/17 15: RDW 15.0 % (11.6-16.5) 03/21/17 15: Plt Count 222 X10^3/uL (150.0-450.0) 03/21/17 15: MPV 8.4 fL (7.4-11.0) 03/21/17 15: Neut % 72.0 % (42.0-75.0) 03/21/17 15: Lymph % 21.2 % (21.0-51.0) 03/21/17 15: [place] % 3.9 % (0.0-13.0) 03/21/17 15: Eos % 1.3 % (0.9-2.9) 03/21/17 15: Baso % 1.6 % (0.2-1.0) H 03/21/17 15:01 Neut # 7.8 x10^3/uL (2.2-4.8) H 03/21/17 15:01 Lymph # 2.3 X10^3/uL (1.3-2.9) 03/21/17 15:01 [place] # 0.4 x10^3/uL (0.3-0.8) 03/21/17 15:01 Eos # 0.1 x10^3/uL (0.0-0.2) 03/21/17 15:01 Baso # 0.2 X10^3/uL (0.0-0.1) H 03/21/17 15:01 Absolute Nucleated RBC 0.0 /100WBC 03/21/17 15:01 Sodium 140 mmol/L (136-145) 03/21/17 15:01 Corrected Sodium TNP 03/21/17 15: Potassium 3.6 mmol/L (3.5-5.1) 03/21/17 15:01 Chloride 106 mmol/L (98-107) 03/21/17 15:01 Carbon Dioxide 24.8 mmol/L (21-32) 03/21/17 15:01 BUN 8 mg/dL (7-18) 03/21/17 15:01 Creatinine 0.54 mg/dL (0.55-1.02) L 03/21/17 15:01 Est GFR (MDRD) Af Amer > 60 (>60) 03/21/17 15:01 Est GFR (MDRD) Non-Af > 60 (>60) 03/21/17 15:01 Glucose 89 mg/dL (65-99) 03/21/17 15:01 Calcium 8.7 mg/dL (8.5-10.1) 03/21/17 15:01 Corrected Calcium TNP 03/21/17 15:01 Total Bilirubin 0.40 mg/dL (0.2-1.0) 03/21/17 15:01 AST 20 Units/L (15-37) 03/21/17 15:01 ALT 25 Units/L (12-78) 03/21/17 15:01 Alkaline Phosphatase 161 Units/L (46-116) H 03/21/17 15:01 Creatine Kinase 46 Units/L (26-192) 03/21/17 15:01 CK-MB (CK-2) < 1.0 ng/mL (0-4.0) 03/21/17 15:01 CK/CKMB % Calc 2.2 % (<4) 03/21/17 15:01 Troponin I < 0.02 ng/mL (0-1.5) 03/21/17 15:01 Total Protein 8.5 g/dL (6.4-8.2) H 03/21/17 15:01 Albumin 4.0 g/dL (3.4-5.0) 03/21/17 15:01 Globulin 4.5 g/dL (2.5-4.5) 03/21/17 15:01 Albumin/Globulin Ratio 0.9 Ratio (1.1-2.1) L 03/21/17 15:01 Specimen Type Clean catch urine 03/21/17 15:16 Urine Color Yellow (YELLOW) 03/21/17 15:16 Urine Appearance Cloudy (CLEAR) 03/21/17 15:16 Urine pH 6.0 (5.0 - 8.0) 03/21/17 15:16 Ur Specific [place] 1.010 (1.000-1.030) 03/21/17 15:16 Urine Protein 1+ (NEGATIVE) 03/21/17 15:16 Urine Glucose (UA) Negative (NEGATIVE) 03/21/17 15:16 Urine Ketones Negative (NEGATIVE) 03/21/17 15:16 Urine Occult Blood 1+ (NEGATIVE) 03/21/17 15:16 Urine Nitrite Positive (NEGATIVE) 03/21/17 15:16 Urine Bilirubin Negative (NEGATIVE) 03/21/17 15:16 Urine Urobilinogen Normal (NORMAL) 03/21/17 15:16 Ur Leukocyte Esterase 3+ (NEGATIVE) 03/21/17 15:16 Urine RBC 1 - 5 /HPF (NEGATIVE) 03/21/17 15:16 Urine WBC 40 - 50 /HPF (NEGATIVE) 03/21/17 15:16 Ur Squamous Epith Cells Moderate /HPF (NEGATIVE) 03/21/17 15:16 Urine Bacteria 1+ /HPF (NEGATIVE) 03/21/17 15:16 Ur Culture Indicated? Yes/culture set up 03/21/17 15:16 - XRAY XRAY Interpreted by: Radiologist XRAY Findings: REPORT DISCUSS WITH PATIENT. - EKG Rhythm: NSR (EKG NOTED.) - Diagnosis Discharge Problem: Cellulitis of chest wall Chest pain Qualifiers: Chest pain type: unspecified Qualified Code(s): R07.9 - Chest pain, unspecified UTI (urinary tract infection) Qualifiers: Urinary tract infection type: site unspecified Hematuria presence: without hematuria Qualified Code(s): N39.0 - Urinary tract infection, site not specified - Discharge Plan Disposition: 01 HOME, SELF-CARE Condition: Stable Prescriptions: Mupirocin Calcium Cream [BACTROBAN CREAM 2%] 1 applic EXT BID #30 gm Sulfamethoxazole-Trimethoprim [BACTRIM DS TAB 800/160 MG *] 1 tab PO Q8H #30 tab - Follow ups/Referrals Follow ups/Referrals: DC CHAUHAN [Primary Care Provider] - 3 days - Instructions Instructions: Urinary Tract Infection, Adult, [id number], Cellulitis, Adult, [id number] Additional Instructions: RETURN TO ED IF WORSE.
--- NOTE | 2017-03-21 15:13 | RAD ---
HISTORY: Dyspnea, left-sided chest pain Study: Single-view chest Comparison: November 15, 2016 Findings: The trachea is midline. The cardiac silhouette is mildly enlarged when considering the AP technique . The lungs are clear without focal mass or consolidation. There is no effusion or pneumothorax. The bony thorax is grossly unremarkable. IMPRESSION: Mild cardiomegaly without acute cardiopulmonary disease. Reported By:
[2017-03-21 15:31] LABS: ALANINE AMINOTRANSFERASE 25 Units/L (12-78); ALKALINE PHOSPHATASE 161 Units/L (46-116); ASPARTATE AMINO TRANSFERASE 20 Units/L (15-37); BLOOD UREA NITROGEN 8 mg/dL (7-18); CALCIUM 8.7 mg/dL (8.5-10.1); CARBON DIOXIDE 24.8 mmol/L (21-32); CHLORIDE 106 mmol/L (98-107); CKMB % 2.2 % (<4); CREATINE KINASE 46 Units/L (26-192); CREATINE KINASE MB < 1.0 ng/mL (0-4.0); GLUCOSE 89 mg/dL (65-99); SODIUM 140 mmol/L (136-145); TOTAL PROTEIN 8.5 g/dL (6.4-8.2); TROPONIN I < 0.02 ng/mL (0-1.5)
[2017-03-21 15:36] LABS: CREATININE 0.54 mg/dL (0.55-1.02); eGFR BLACK RACES > 60 (>60); eGFR NON BLACK RACES > 60 (>60)
[2017-03-21 15:39] LABS: BILIRUBIN,URINE NEGATIVE (NEGATIVE); BLOOD/HEMOGLOBIN,URINE 1+ (NEGATIVE); GLUCOSE, URINE NEGATIVE (NEGATIVE); KETONES,URINE NEGATIVE (NEGATIVE); LEUKOCYTE ESTERASE ,URINE 3+ (NEGATIVE); NITRITES,URINE POSITIVE (NEGATIVE); PROTEIN,URINE 1+ (NEGATIVE); UROBILINOGEN,URINE NORMAL (NORMAL)
[2017-03-21 15:46] LABS: APPEARANCE,URINE CLOUDY (CLEAR); COLOR,URINE YELLOW (YELLOW)
[2017-03-21 15:48] LABS: BACTERIA,URINE 1+ /HPF (NEGATIVE); SQUAMOUS EPITHELIAL CELL,UR MODERATE /HPF (NEGATIVE)
[2017-03-21] MEDS ORDERED: ROCEPHIN VIAL 1 GM IM ONE (16:50)
[2017-03-21] MEDS ORDERED: TORADOL 60 MG VIAL IM ONE (16:51)
[2017-03-21] MEDS ORDERED: TORADOL TAB PO ONE ×2 (16:55)
== END 2017-03-21 17:12 | disposition home or self-care (01) ==
LOC: ER 14:07
DX: N39.0 Urinary tract infection, site not specified (principal); L03.313 Cellulitis of chest wall; R07.89 Other chest pain; B96.29 Other Escherichia coli [E. coli] as the cause of diseases classified elsewhere
CPT/HCPCS: 36415; 71010; 80053; 81001; 82550; 82553; 84484; 85025; 87086; 87088; 87186; 93005; 93010; 99283

== ENCOUNTER → 2017-03-21 | Outpatient (CLI) | payer OTHER, MEDICAID ==
[2017-03-21 16:28] LABS: HEMOGLOBIN A1C 5.6 % (4.5-6.2)
[2017-03-21 16:37] LABS: C-REACTIVE PROTEIN 13.5 mg/L (0-3.0); FREE T4 (FREE THYROXINE) 1.07 ng/dL (0.76-1.46); TSH (3RD GENERATION) 1.8 uIU/mL (0.358-3.74)
== END | disposition home or self-care (01) | DRG 690 ==
LOC: LAB 13:37
PROVIDERS: ATTEND Internal Medicine
DX: N39.0 Urinary tract infection, site not specified (principal); L03.313 Cellulitis of chest wall; R07.89 Other chest pain; B96.29 Other Escherichia coli [E. coli] as the cause of diseases classified elsewhere; I50.9 Heart failure, unspecified; I25.10 Atherosclerotic heart disease of native coronary artery without angina pectoris; R53.83 Other fatigue; R50.9 Fever, unspecified
CPT/HCPCS: 36415; 83036; 84439; 84443; 85652; 86140

== ENCOUNTER 2017-05-18 18:00 | Emergency (ER) | payer OTHER, MEDICAID ==
[2017-05-18 18:06] VITALS: BP 130/73; BMI 39.9
--- NOTE | 2017-05-18 18:24 | DR.GENAD ---
HPI - PCP Primary Care Physician: GISSEL - HPI Comment HPI Comment: PAIN THAT IS GETTING WORSE. - Complaint/Symptoms Chief Complaint Doctors Comments: INJURY RIGHT KNEE AND LEFT FOREARM AFTER A FALL. Chief Complaint:: PT C/O RT KNEE AND LT FA PAIN S/P FALL. PT STATES THIS HAPPENED SEVERAL HOURS AGO Self Treatment fo Chief Complaint: MOTRIN 200MG - Nurses notes reviewed Nurses Notes Review: Yes - Source History Provided: Patient - Mode of Arrival Mode of Arrival: Ambulatory - Timing Onset of Chief Complaint: 05/18/17 Came on: Suddenly - Duration Duration: Constant Duration: Hours - Severity Severity: Moderate PMH - PMH Past Medical History: Yes Past Medical History: CHF, Hypertension Past Surgical History: Yes Surgical History: - Family History History of Family Medical Conditions: Yes Family Medical History: Diabetes Mellitus, Cancer, [place], Sudden Cardiac , Hypertension - Social History Does patient currently use any type of tobacco product: Yes Have you used tobacco products in the last 12 months: Yes Type of Tobacco Use: Cigarettes Does any household member use tobacco: Yes Alcohol Use: None Do you use any recreational Drugs:: No Lives With: Family Lives Where: Home - infectious screening In the last 2 months have you had wt loss of >10#?: NO Have you had fever, night sweats or hemotysis?: No Have you traveled outside the country in the last 6 months?: No Isolation: Standard ROS - Review of Systems Constitutional: No Symptoms Reported Eyes: No Symptoms Reported ENTM: No Symptoms Reported Respiratoy: No Symptoms Reported Cardiovascular: No Symptoms Reported Gastrointestinal/Abdominal: No Symptoms Reported Genitourinary: No Symptoms Reported Neurological: No Symptoms Reported Musculoskeletal: Right, Left, Forearm, Foot Integumentary: No Symptoms Reported Hematologic/Lymphatic: No Symptoms Reported Endocrine: No Symptoms Reported All Other Systems: Reviewed and Negative PE - Vital Signs Vitals: Temperature 98.1 F Pulse Rate 87 Respiratory Rate 20 Blood Pressure [Right Arm] 135/69 Blood Pressure [Left Arm] 109/68 Blood Pressure 130/73 O2 Sat by Pulse Oximetry 97 - General Limitations: No Limitations General Appearance: Alert - Head Head Exam: Normal Inspection - Eyes Eye exam: Normal Appearance - ENT ENT Exam: Normal External Ear Exam External Ear Exam: Normal External Inspection TM/Canal Exam: Bilateral Normal Nose Exam: Normal Nose Exam Mouth Exam: Normal Inspection Throat Exam: Normal Inspection - Neck Neck Exam: Trachea Midline - Chest Chest Inspection: Symmetric Chest Wall Rise - Respiratory Respiratory Exam: Normal Lung Sounds Bilat Respiratory Exam: Bilateral Clear to Auscultation - Cardiovascular Cardiovascular Exam: Regular Rate, Normal Rhythm, Normal Heart Sounds - Abdominal Exam Abdominal Exam: Normal Inspection - Extremities Extremities Exam: Tenderness (TENDERNESS RT KNEE, ROM DECREASE. TENDERNESS RIGHT FOREARM.) - Back Back Exam: Normal Inspection - Neurologic Neurological Exam: Alert, Oriented X3 - Psychiatric Psychiatric Exam: Normal Affect, Normal Mood - Skin Skin Exam: Normal Color MDM - Differential Diagnosis Differential Diagnosis: RT KNEE AND LT FOREARM CONTUSION, STRAIN, SPRAIN AND FRACTURE. Course - Treatment Treatment: SEE ORDERS. SLING APPLIED AND SHAWN WRAP TO KNEE. - Education/Counseling Education/Counseling: Patient, Education Educated On: Diagnosis, Needs for Follow Up ROR - XRAY XRAY Interpreted by: Radiologist XRAY Findings: REPORT NOTED. - Diagnosis Discharge Problem: Sprain of right knee Qualifiers: Encounter type: initial encounter Involved ligament of knee: unspecified ligament Qualified Code(s): S83.91XA - Sprain of unspecified site of right knee , initial encounter Contusion of left forearm Qualifiers: Encounter type: initial encounter Qualified Code(s): S50.12XA - Contusion of left forearm, initial encounter - Discharge Plan Disposition: 01 HOME, SELF-CARE Condition: Stable Prescriptions: Ibuprofen [MOTRIN TAB 800 MG *] 800 mg PO Q8H PRN #20 tab PRN Reason: Pain/Inflammation - Follow ups/Referrals Follow ups/Referrals: DC CHAUHAN [Primary Care Provider] - 2 days - Instructions Instructions: Knee Pain, Musculoskeletal Pain Additional Instructions: RETURN TO ED IF WORSE
[2017-05-18] MEDS ORDERED: TORADOL 60 MG VIAL IM ONE (19:47)
[2017-05-18] MEDS ORDERED: TORADOL 60 MG VIAL ONE (19:49)
--- NOTE | 2017-05-18 20:19 | RAD ---
History: Forearm pain. Exam: AP and lateral views left forearm. Findings: The radius and ulna both are intact. There is no evidence for an acute fracture or dislocat ion of either the proximal or distal radius or ulna. The DRUJ and elbow joints are both intact. What is visible of the carpal bones shows no acute fracture/ bony abnormality. No unexpected radiopaque fo reign bodies are seen. No focal soft tissue swelling is evident. Impression: Negative left forearm radiography. Reported By:
--- NOTE | 2017-05-18 20:23 | RAD ---
HISTORY: Knee Pain. Study: Complete three-view series right knee Comparison: None available. Findings: No acute fracture, subluxation, or dislocation is identified. The medial and lateral tibiofemoral co mpartments appear unremarkable without loss of significant joint space. The lateral radiograph fails to demonstrate a visible joint effusion. Patellofemoral compartment is unremarkable in appearance. No lytic or bone forming lesions are seen. No high-grade osteochondral defects are observed. No unexp ected radiopaque foreign bodies are seen. There is no evidence for significant degenerative arthrosis . No focal joint erosions are seen, either. IMPRESSION: 1. Negative knee joint exam. Reported By:
== END 2017-05-18 20:21 | disposition home or self-care (01) ==
LOC: ER 18:08
DX: S83.91XA Sprain of unspecified site of right knee, initial encounter (principal); S50.12XA Contusion of left forearm, initial encounter; W19.XXXA Unspecified fall, initial encounter; Y92.9 Unspecified place or not applicable
CPT/HCPCS: 73090; 73564; 96372; 99282; 99283; J1885

== ENCOUNTER → 2017-06-13 | Outpatient (CLI) | payer OTHER, MEDICAID ==
[2017-05-18 18:06] VITALS: BP 130/73
--- NOTE | 2017-06-13 10:32 | MRI ---
MRI BRAIN WITHOUT CONTRAST CLINICAL HISTORY: 21-year-old female with headaches and dragging her left leg with left-sided facial and body weakness. COMPARISON: CT head 04/01/2012. TECHNIQUE: Multiplanar, multisequence MR images of the brain were obtained without contrast. FINDINGS: There is no evidence of diffusion restriction. The craniocervical junction is normal. Pitui tary and optic nerve complex are normal. There are few nonspecific bifrontal subcortical T2 FLAIR hyp erintense foci of signal abnormality. Normal signal characteristics and morphology are demonstrated w ithin the cerebral cortex, corpus callosum, deep vickers nuclei, brainstem and cerebellum. The ventricul ar system is normal in size and morphology. The major vascular flow voids, to include the dural venou s sinuses, are intact. The basilar cisterns are normal. The orbits and globes are within normal limits. Open chronic hypoplastic right maxillary sinus with h yperostosis of the sinus finley with inspissated secretions of the completely opacified right sphenoid sinus and mucosal thickening throughout the right maxillary sinus, all consistent with chronic sinus itis and possible silent sinus of the right maxillary sinus. Trace mucosal thickening of the left max illary sinus with the remaining imaged paranasal sinuses and tympanic cavities clear. Mastoid air yu ls are poorly pneumatized. IMPRESSION: 1. No acute ischemic or hemorrhagic insult. 2. There are few nonspecific foci of T2 FLAIR hyperintense signal abnormality in the subcortical bifr ontal white matter. Uncertain etiology and can be seen with migraines, microvascular ischemic disease secondary to hypertension or diabetes and demyelinating process. Correlate clinically in with serolo gy. 3. Chronic right maxillary and sphenoid sinusitis with inspissated secretions and hyperostosis of the sinus finley. Reported By:
--- NOTE | 2017-06-13 11:32 | MRI ---
MRI left shoulder without contrast Indication: Left shoulder pain after recent fall, concern for dislocation Comparison: CT of the shoulder from the same day Technique: Multiplanar multi sequence MR images of the left shoulder were obtained without contrast. Findings: The acromioclavicular and glenohumeral joints are normally maintained. The marrow signal is normal, without evidence for acute fracture or dislocation. The rotator cuff and intra-articular bic eps tendon are intact. No overt labral tear is identified. There is no glenohumeral joint effusion. N o muscle atrophy or edema about the shoulder appreciated. Impression: Unremarkable MRI of the left shoulder. Specifically, no evidence for acute fracture or dislocation. Reported By:
--- NOTE | 2017-06-16 08:12 | CT ---
CT left shoulder without contrast Indication: Fall 3 days ago with shoulder pain Comparison: None Technique: CT images of the left shoulder were obtained without contrast. Automatic exposure control was utilized. Findings: The glenohumeral and acromioclavicular joints are normally maintained, without evidence for acute cortical disruption or dislocation. The muscle bulk about the left shoulder is normal. No obvi ous large cuff tear or tendon retraction identified, within the limitations of a noncontrast CT. No e vidence for large joint effusion or periarticular fluid collection. The visualized left lung is clear . No rib fracture identified. Impression: No acute skeletal injury of the left shoulder. Reported By:
== END ==
LOC: RAD 08:35
PROVIDERS: ATTEND Psychiatry & Neurology Neurology
DX: I63.8 Other cerebral infarction (principal); S43.085A Other dislocation of left shoulder joint, initial encounter; X58.XXXA Exposure to other specified factors, initial encounter
CPT/HCPCS: 70551; 73200; 73221